=== PATIENT | female | born 1930 | race Caucasian/White ===

== ENCOUNTER 2016-04-25 17:33 | Inpatient (IN) | payer MEDICARE, OTHER ==
[~2016-04-25] VITALS: Ht 170.2 cm; Wt 76.7 kg
[~2016-04-25 17:33] MED LIST: ACET325T53 PO; AMLO10TA2 PO; CLON0.1T14 PO; CLOP75TA2 PO; DOCU250C75 PO; DONE5TAB3 PO; GABA-532 PO; HYDR-4077 PO; MAG30ORA PO; MAGN400O6 PO; MEMA10TA21 PO; METO25TA6 PO
[2016-04-25 18:22] LABS: BASOPHILS % (AUTO) 0.4 % (0.0-2.0); DIFF TOTAL % 100 %; EOSINOPHILS # (AUTO) 0.2 /CMM (0.0-0.7); HEMATOCRIT 43 % (33-45); HEMOGLOBIN 14.1 g/dL (11.5-14.8); LYMPHOCYTES # (AUTO) 2.3 /CMM (0.8-4.8); LYMPHOCYTES % (AUTO) 28.6 % (20.0-44.0); MEAN CORPUSCULAR HEMOGLOBIN 29 PG (26.0-33.0); MEAN CORPUSCULAR HGB CONC 33 g/dl (31.0-36.0); MEAN CORPUSCULAR VOLUME 87 fL (82-100); MONOCYTES # (AUTO) 0.5 /CMM (0.1-1.30); MONOCYTES % (AUTO) 5.9 % (2.0-12.0); NEUTROPHILS # (AUTO) 4.9 /CMM (1.8-8.9); NEUTROPHILS % (AUTO) 63.1 % (43.0-81.0); PLATELET COUNT (AUTO) 255 /CMM (150-450); RED BLOOD CELL COUNT(AUTO) 4.92 MIL/uL (4.0-5.2); WHITE BLOOD COUNT (AUTO) 7.9 K/uL (4.3-11.0)
[2016-04-25 18:29] LABS: ANION GAP 14 (5-14); CALCIUM, SERUM 8.8 mg/dL (8.5-10.1); CARBON DIOXIDE 26 mmol/L (21-32); CHLORIDE 106 mmol/L (98-107); CREATININE 2.5 mg/dL (0.6-1.3); GLUCOSE 180 mg/dL (74-106); POTASSIUM 4.6 mmol/L (3.5-5.1); SODIUM SERUM 141 mmol/L (136-145); UREA NITROGEN, BLOOD 40 mg/dL (7-18)
[2016-04-25 18:35] LABS: ALANINE AMINOTRANSFERASE 8 U/L (12-78); ALBUMIN 3.2 g/dL (3.4-5.0); ASPARTATE AMINOTRANSFERASE 11 U/L (15-37); BILIRUBIN,DIRECT 0.1 mg/dL (0.0-0.2); BILIRUBIN,TOTAL 0.4 mg/dL (0.2-1.0); INDIRECT BILIRUBIN 0.3 mg/dL (0.0-1.1); TOTAL PROTEIN, SERUM 7.4 g/dL (6.4-8.2)
[2016-04-25 18:37] LABS: SALICYLATE 0.7 mg/dL (2.8-20.0)
[2016-04-25] MEDS ORDERED: DIVA500T2 PO (18:37)
[2016-04-25] MEDS ORDERED: LEVO25TA9 PO (18:37)
[2016-04-25] MEDS ORDERED: QUET25TA PO (18:37)
[2016-04-25] MEDS ORDERED: DIPH1TAB70 PO (18:37)
[2016-04-25] MEDS ORDERED: MIRT15TA7 PO (18:37)
[2016-04-25] MEDS ORDERED: HYDR-4076 PO (18:37)
[2016-04-25] MEDS ORDERED: IBUP-1955 PO (18:37)
[2016-04-25] MEDS ORDERED: LORA1TAB PO (18:37)
[2016-04-25 18:38] LABS: ACETAMINOPHEN 0 ug/ml (10-30)
[2016-04-25 19:10] LABS: KETONES,URINE Trace (NEGATIVE); LEUKOCYTE ESTERASE ,URINE Small (NEGATIVE)
[2016-04-25 19:27] LABS: ADD UA MICROSCOPIC YES; CANNABINOID, URINE NEGATIVE (NEGATIVE); PHENCYCLIDINE SCREEN,URINE NEGATIVE (NEGATIVE)
[2016-04-25 19:34] LABS: ADD URINE CULTURE NO; RBC,URINE 0-2 /HPF (0-2)
[2016-04-25] MEDS ORDERED: LORAZEPAM 1 MG TABLET ONE (20:02)
[2016-04-25 20:15] VITALS: BP 162/77
[2016-04-25] MEDS ORDERED: ACETAMINOPHEN 325 MG TABLET PO PRN (20:30)
[2016-04-25] MEDS ORDERED: MAGNESIUM HYDROXIDE 30 ML UDC PO PRN (20:30)
[2016-04-25] MEDS ORDERED: MAG HYDROX/AL HYDROX/SIMETH 30 ML UDC PO PRN (20:30)
[2016-04-25] MEDS ORDERED: TEMAZEPAM 7.5 MG CAPSULE PO PRN (20:30)
[2016-04-25] MEDS ORDERED: LORAZEPAM 1 MG TABLET PO PRN (20:30)
[2016-04-25] MEDS ORDERED: LORAZEPAM 0.5 MG TABLET PO PRN (20:30)
[2016-04-25 21:55] LABS: CHOLESTEROL 210 mg/dL (<200); HDL CHOLESTEROL 37 mg/dL (40-60); LDL 155 mg/dL (0-99); TRIGLYCERIDES 94 mg/dL (30-150)
[2016-04-26] MEDS ORDERED: IBUPROFEN 600 MG TABLET PO PRN (01:30)
[2016-04-26] MEDS ORDERED: DIPHENOXYLATE HCL/ATROP SULF 1 UDTAB TABLET PO PRN (01:30)
[2016-04-26 03:03] VITALS: BP 152/77
[2016-04-26 08:00] VITALS: BP 150/79
[2016-04-26] MEDS: DOCUSATE SODIUM 250 MG CAPSULE PO SCH ×2 (08:49→17:12)
[2016-04-26] MEDS: AMLODIPINE BESYLATE 10 MG TABLET PO SCH (08:49)
[2016-04-26] MEDS: METOPROLOL TARTRATE 50 MG TABLET PO SCH ×3 (08:50→21:54)
[2016-04-26] MEDS: CLOPIDOGREL BISULFATE 75 MG TABLET PO SCH (08:50)
[2016-04-26] MEDS: LEVOTHYROXINE SODIUM 25 MCG TABLET PO SCH (08:50)
[2016-04-26] MEDS: hydrALAZINE HCL 50 MG TABLET PO SCH ×3 (08:56→17:12)
[2016-04-26] MEDS: GABAPENTIN 100 MG CAPSULE PO SCH ×2 (08:56→17:12)
[2016-04-26] MEDS: Z GUARD REMEDY 2 OZ OINT TP SCH ×2 (11:30→17:30)
[2016-04-26] MEDS ORDERED: Z GUARD REMEDY 2 OZ OINT TP PRN (11:30)
[2016-04-26 16:07] VITALS: BP 158/88
[2016-04-26 20:00] VITALS: BP 140/73
[2016-04-26] MEDS: DIVALPROEX SODIUM 500 MG TABLET.DR PO SCH ×2 (21:00→21:55)
[2016-04-26] MEDS: QUETIAPINE FUMARATE 25 MG TABLET PO SCH ×2 (21:00→21:55)
[2016-04-26 21:01] LABS: BASOPHILS # (AUTO) 0.1 /CMM (0.0-0.2); BASOPHILS % (AUTO) 0.6 % (0.0-2.0); DIFF TOTAL % 100 %; EOSINOPHILS % (AUTO) 0.2 % (0.0-6.0); HEMATOCRIT 46 % (33-45); HEMOGLOBIN 14.4 g/dL (11.5-14.8); LYMPHOCYTES # (AUTO) 3.1 /CMM (0.8-4.8); MEAN CORPUSCULAR HEMOGLOBIN 28 PG (26.0-33.0); MEAN CORPUSCULAR HGB CONC 32 g/dl (31.0-36.0); MEAN CORPUSCULAR VOLUME 87 fL (82-100); MONOCYTES # (AUTO) 0.7 /CMM (0.1-1.30); MONOCYTES % (AUTO) 6.3 % (2.0-12.0); NEUTROPHILS # (AUTO) 7.9 /CMM (1.8-8.9); NEUTROPHILS % (AUTO) 66.9 % (43.0-81.0); RED BLOOD CELL COUNT(AUTO) 5.21 MIL/uL (4.0-5.2); WHITE BLOOD COUNT (AUTO) 11.8 K/uL (4.3-11.0)
[2016-04-26 21:49] LABS: PLATELET COUNT (AUTO) 236 /CMM (150-450)
[2016-04-26] MEDS: MIRTAZAPINE 15 MG TABLET PO SCH ×2 (21:55→22:00)
[2016-04-26] MEDS: DONEPEZIL 5 MG TABLET PO SCH ×2 (21:55→22:00)
[2016-04-27] MEDS: Z GUARD REMEDY 2 OZ OINT TP SCH ×2 (05:36→17:09)
[2016-04-27] MEDS: LEVOTHYROXINE SODIUM 25 MCG TABLET PO SCH (08:17)
[2016-04-27] MEDS: AMLODIPINE BESYLATE 10 MG TABLET PO SCH (08:17)
[2016-04-27] MEDS: METOPROLOL TARTRATE 50 MG TABLET PO SCH ×2 (08:17→23:30)
[2016-04-27] MEDS: DOCUSATE SODIUM 250 MG CAPSULE PO SCH ×2 (08:17→17:07)
[2016-04-27] MEDS: CLOPIDOGREL BISULFATE 75 MG TABLET PO SCH (08:17)
[2016-04-27] MEDS: QUETIAPINE FUMARATE 25 MG TABLET PO SCH ×2 (08:17→23:29)
[2016-04-27] MEDS: hydrALAZINE HCL 50 MG TABLET PO SCH ×3 (08:18→17:00)
[2016-04-27 08:21] VITALS: BP 161/105
[2016-04-27] MEDS: DIVALPROEX SODIUM 500 MG TABLET.DR PO SCH ×2 (08:24→23:30)
[2016-04-27] MEDS: GABAPENTIN 100 MG CAPSULE PO SCH ×2 (08:24→17:07)
[2016-04-27 16:03] VITALS: BP 120/52
[2016-04-27 20:00] VITALS: BP 119/54
[2016-04-27] MEDS: DONEPEZIL 5 MG TABLET PO SCH (23:29)
[2016-04-27] MEDS: MIRTAZAPINE 15 MG TABLET PO SCH (23:30)
[2016-04-28] MEDS: Z GUARD REMEDY 2 OZ OINT TP SCH ×2 (06:06→17:46)
[2016-04-28] MEDS: DIVALPROEX SODIUM 500 MG TABLET.DR PO SCH ×2 (09:00→10:37)
[2016-04-28 09:36] VITALS: BP 150/86
[2016-04-28 09:39] VITALS: BP 142/91
[2016-04-28] MEDS: AMLODIPINE BESYLATE 10 MG TABLET PO SCH (10:36)
[2016-04-28] MEDS: QUETIAPINE FUMARATE 25 MG TABLET PO SCH ×2 (10:37→21:47)
[2016-04-28] MEDS: METOPROLOL TARTRATE 50 MG TABLET PO SCH ×2 (10:37→21:47)
[2016-04-28] MEDS: CLOPIDOGREL BISULFATE 75 MG TABLET PO SCH (10:37)
[2016-04-28] MEDS: hydrALAZINE HCL 50 MG TABLET PO SCH ×3 (10:37→17:45)
[2016-04-28] MEDS: DOCUSATE SODIUM 250 MG CAPSULE PO SCH ×2 (10:38→17:44)
[2016-04-28] MEDS: GABAPENTIN 100 MG CAPSULE PO SCH ×2 (10:38→17:44)
[2016-04-28] MEDS: LEVOTHYROXINE SODIUM 25 MCG TABLET PO SCH (10:38)
[2016-04-28 16:39] VITALS: BP 131/66
[2016-04-28 20:18] VITALS: BP 121/74
[2016-04-28] MEDS: DIVALPROEX SODIUM 125 MG CAP.SPRINK PO SCH (21:47)
[2016-04-28] MEDS: MIRTAZAPINE 15 MG TABLET PO SCH (21:48)
[2016-04-28] MEDS: DONEPEZIL 5 MG TABLET PO SCH (21:48)
[2016-04-29] MEDS: Z GUARD REMEDY 2 OZ OINT TP SCH ×2 (05:13→17:50)
[2016-04-29] MEDS: LEVOTHYROXINE SODIUM 25 MCG TABLET PO SCH (07:30)
[2016-04-29 08:00] VITALS: BP 166/75
[2016-04-29] MEDS: QUETIAPINE FUMARATE 25 MG TABLET PO SCH ×2 (09:00→21:45)
[2016-04-29] MEDS: hydrALAZINE HCL 50 MG TABLET PO SCH ×3 (09:00→16:44)
[2016-04-29] MEDS: METOPROLOL TARTRATE 50 MG TABLET PO SCH ×2 (09:00→21:46)
[2016-04-29] MEDS: AMLODIPINE BESYLATE 10 MG TABLET PO SCH (09:00)
[2016-04-29] MEDS: DIVALPROEX SODIUM 125 MG CAP.SPRINK PO SCH ×2 (09:00→21:46)
[2016-04-29] MEDS: CLOPIDOGREL BISULFATE 75 MG TABLET PO SCH (09:00)
[2016-04-29] MEDS: GABAPENTIN 100 MG CAPSULE PO SCH ×2 (09:00→16:45)
[2016-04-29] MEDS: DOCUSATE SODIUM 250 MG CAPSULE PO SCH ×2 (09:00→16:43)
[2016-04-29 14:53] LABS: CALCIUM, SERUM 8.4 mg/dL (8.5-10.1); CREATININE 2.5 mg/dL (0.6-1.3); PHOSPHORUS 3.5 mg/dL (2.5-4.9); POTASSIUM 4.9 mmol/L (3.5-5.1)
[2016-04-29 16:00] VITALS: BP 154/97
[2016-04-29 20:02] VITALS: BP 124/64
[2016-04-29] MEDS: MIRTAZAPINE 15 MG TABLET PO SCH (21:45)
[2016-04-29] MEDS: DONEPEZIL 5 MG TABLET PO SCH (21:46)
[2016-04-30] MEDS: Z GUARD REMEDY 2 OZ OINT TP SCH ×2 (05:54→17:38)
[2016-04-30 08:00] VITALS: BP 128/76
[2016-04-30] MEDS: hydrALAZINE HCL 50 MG TABLET PO SCH ×3 (13:00→16:40)
[2016-04-30] MEDS: DIVALPROEX SODIUM 125 MG CAP.SPRINK PO SCH ×2 (13:55→21:28)
[2016-04-30] MEDS: LEVOTHYROXINE SODIUM 25 MCG TABLET PO SCH (13:56)
[2016-04-30] MEDS: CLOPIDOGREL BISULFATE 75 MG TABLET PO SCH (13:57)
[2016-04-30] MEDS: GABAPENTIN 100 MG CAPSULE PO SCH ×2 (13:57→16:40)
[2016-04-30] MEDS: QUETIAPINE FUMARATE 25 MG TABLET PO SCH ×2 (13:57→21:28)
[2016-04-30] MEDS: DOCUSATE SODIUM 250 MG CAPSULE PO SCH ×2 (13:58→16:40)
[2016-04-30] MEDS: METOPROLOL TARTRATE 50 MG TABLET PO SCH ×2 (13:58→21:29)
[2016-04-30] MEDS: AMLODIPINE BESYLATE 10 MG TABLET PO SCH (13:59)
[2016-04-30 16:00] VITALS: BP 143/86
[2016-04-30 19:21] LABS: BASOPHILS % (AUTO) 0.2 % (0.0-2.0); DIFF TOTAL % 100 %; EOSINOPHILS # (AUTO) 0.2 /CMM (0.0-0.7); EOSINOPHILS % (AUTO) 1.2 % (0.0-6.0); HEMATOCRIT 43 % (33-45); HEMOGLOBIN 13.8 g/dL (11.5-14.8); LYMPHOCYTES # (AUTO) 2.2 /CMM (0.8-4.8); LYMPHOCYTES % (AUTO) 17.3 % (20.0-44.0); MEAN CORPUSCULAR HEMOGLOBIN 29 PG (26.0-33.0); MEAN CORPUSCULAR HGB CONC 33 g/dl (31.0-36.0); MEAN CORPUSCULAR VOLUME 88 fL (82-100); MONOCYTES # (AUTO) 0.8 /CMM (0.1-1.30); MONOCYTES % (AUTO) 5.9 % (2.0-12.0); NEUTROPHILS # (AUTO) 9.7 /CMM (1.8-8.9); NEUTROPHILS % (AUTO) 75.4 % (43.0-81.0); PLATELET COUNT (AUTO) 273 /CMM (150-450); RED BLOOD CELL COUNT(AUTO) 4.84 MIL/uL (4.0-5.2); WHITE BLOOD COUNT (AUTO) 12.9 K/uL (4.3-11.0)
[2016-04-30 19:30] LABS: CALCIUM, SERUM 8.3 mg/dL (8.5-10.1); CREATININE 2.9 mg/dL (0.6-1.3); PHOSPHORUS 3.6 mg/dL (2.5-4.9); POTASSIUM 4.3 mmol/L (3.5-5.1)
[2016-04-30 21:20] VITALS: BP 124/58
[2016-04-30] MEDS: MIRTAZAPINE 15 MG TABLET PO SCH (21:28)
[2016-04-30] MEDS: DONEPEZIL 5 MG TABLET PO SCH (21:28)
[2016-05-01] MEDS: Z GUARD REMEDY 2 OZ OINT TP SCH ×2 (06:23→17:10)
[2016-05-01] MEDS: LEVOTHYROXINE SODIUM 25 MCG TABLET PO SCH (08:03)
[2016-05-01 08:20] LABS: BASOPHILS % (AUTO) 0.3 % (0.0-2.0); DIFF TOTAL % 100 %; EOSINOPHILS # (AUTO) 0.2 /CMM (0.0-0.7); EOSINOPHILS % (AUTO) 1.6 % (0.0-6.0); HEMATOCRIT 43 % (33-45); HEMOGLOBIN 14.2 g/dL (11.5-14.8); LYMPHOCYTES % (AUTO) 19.3 % (20.0-44.0); MEAN CORPUSCULAR HEMOGLOBIN 29 PG (26.0-33.0); MEAN CORPUSCULAR HGB CONC 33 g/dl (31.0-36.0); MEAN CORPUSCULAR VOLUME 88 fL (82-100); MONOCYTES # (AUTO) 0.9 /CMM (0.1-1.30); MONOCYTES % (AUTO) 8.7 % (2.0-12.0); NEUTROPHILS # (AUTO) 7.4 /CMM (1.8-8.9); NEUTROPHILS % (AUTO) 70.1 % (43.0-81.0); PLATELET COUNT (AUTO) 265 /CMM (150-450); RED BLOOD CELL COUNT(AUTO) 4.87 MIL/uL (4.0-5.2); WHITE BLOOD COUNT (AUTO) 10.5 K/uL (4.3-11.0)
[2016-05-01 08:43] VITALS: BP 159/77
[2016-05-01 08:44] LABS: CALCIUM, SERUM 8.6 mg/dL (8.5-10.1); CREATININE 2.5 mg/dL (0.6-1.3); PHOSPHORUS 3.8 mg/dL (2.5-4.9); POTASSIUM 4.3 mmol/L (3.5-5.1)
[2016-05-01] MEDS: DIVALPROEX SODIUM 125 MG CAP.SPRINK PO SCH ×2 (09:20→22:17)
[2016-05-01] MEDS: AMLODIPINE BESYLATE 10 MG TABLET PO SCH (09:21)
[2016-05-01] MEDS: hydrALAZINE HCL 50 MG TABLET PO SCH ×3 (09:22→17:09)
[2016-05-01] MEDS: DOCUSATE SODIUM 250 MG CAPSULE PO SCH ×2 (09:22→17:09)
[2016-05-01] MEDS: GABAPENTIN 100 MG CAPSULE PO SCH ×2 (09:22→17:09)
[2016-05-01] MEDS: QUETIAPINE FUMARATE 25 MG TABLET PO SCH ×2 (09:22→22:17)
[2016-05-01] MEDS: CLOPIDOGREL BISULFATE 75 MG TABLET PO SCH (09:23)
[2016-05-01] MEDS: METOPROLOL TARTRATE 50 MG TABLET PO SCH ×2 (09:23→22:20)
[2016-05-01 16:31] VITALS: BP 151/61
[2016-05-01 20:02] VITALS: BP 135/66
[2016-05-01] MEDS: MIRTAZAPINE 15 MG TABLET PO SCH (22:17)
[2016-05-01] MEDS: DONEPEZIL 5 MG TABLET PO SCH (22:20)
[2016-05-02] MEDS: Z GUARD REMEDY 2 OZ OINT TP SCH ×2 (06:26→18:45)
[2016-05-02] MEDS: LEVOTHYROXINE SODIUM 25 MCG TABLET PO SCH (07:30)
[2016-05-02 08:39] VITALS: BP 184/74
[2016-05-02] MEDS: hydrALAZINE HCL 50 MG TABLET PO SCH ×3 (09:00→17:00)
[2016-05-02] MEDS: DOCUSATE SODIUM 250 MG CAPSULE PO SCH ×2 (09:00→17:00)
[2016-05-02] MEDS: CLOPIDOGREL BISULFATE 75 MG TABLET PO SCH (09:00)
[2016-05-02] MEDS: DIVALPROEX SODIUM 125 MG CAP.SPRINK PO SCH ×2 (09:00→21:31)
[2016-05-02] MEDS: AMLODIPINE BESYLATE 10 MG TABLET PO SCH (09:00)
[2016-05-02] MEDS: GABAPENTIN 100 MG CAPSULE PO SCH ×2 (09:00→17:00)
[2016-05-02] MEDS: QUETIAPINE FUMARATE 25 MG TABLET PO SCH ×2 (09:00→21:32)
[2016-05-02] MEDS: METOPROLOL TARTRATE 50 MG TABLET PO SCH ×2 (09:00→21:32)
[2016-05-02 16:00] VITALS: BP 170/67
[2016-05-02 20:00] VITALS: BP 139/58
[2016-05-02] MEDS: DONEPEZIL 5 MG TABLET PO SCH (21:32)
[2016-05-02] MEDS: MIRTAZAPINE 15 MG TABLET PO SCH (21:32)
[2016-05-03] MEDS: Z GUARD REMEDY 2 OZ OINT TP SCH ×2 (06:21→17:19)
[2016-05-03 08:00] VITALS: BP 186/78
[2016-05-03] MEDS: METOPROLOL TARTRATE 50 MG TABLET PO SCH ×2 (09:00→21:00)
[2016-05-03] MEDS: LEVOTHYROXINE SODIUM 25 MCG TABLET PO SCH (09:06)
[2016-05-03] MEDS: DIVALPROEX SODIUM 125 MG CAP.SPRINK PO SCH ×2 (09:06→21:00)
[2016-05-03] MEDS: GABAPENTIN 100 MG CAPSULE PO SCH ×2 (09:06→17:17)
[2016-05-03] MEDS: CLOPIDOGREL BISULFATE 75 MG TABLET PO SCH (09:06)
[2016-05-03] MEDS: DOCUSATE SODIUM 250 MG CAPSULE PO SCH ×2 (09:06→17:17)
[2016-05-03] MEDS: QUETIAPINE FUMARATE 25 MG TABLET PO SCH ×2 (09:06→22:00)
[2016-05-03] MEDS: AMLODIPINE BESYLATE 10 MG TABLET PO SCH (09:08)
[2016-05-03] MEDS: hydrALAZINE HCL 50 MG TABLET PO SCH ×3 (09:09→17:18)
[2016-05-03] MEDS ORDERED: ERGOCALCIFEROL (VITAMIN D 2) 50,000 UNIT CAPSULE PO SCH (12:00)
[2016-05-03 16:17] VITALS: BP 127/64
[2016-05-03 20:00] VITALS: BP 131/59
[2016-05-03] MEDS: MIRTAZAPINE 15 MG TABLET PO SCH (22:00)
[2016-05-03] MEDS: DONEPEZIL 5 MG TABLET PO SCH (22:00)
[2016-05-04] MEDS: Z GUARD REMEDY 2 OZ OINT TP SCH ×2 (06:25→18:40)
[2016-05-04 08:00] VITALS: BP 163/90
[2016-05-04] MEDS: CLOPIDOGREL BISULFATE 75 MG TABLET PO SCH (08:52)
[2016-05-04] MEDS: AMLODIPINE BESYLATE 10 MG TABLET PO SCH (08:52)
[2016-05-04] MEDS: GABAPENTIN 100 MG CAPSULE PO SCH ×2 (08:53→18:37)
[2016-05-04] MEDS: DIVALPROEX SODIUM 125 MG CAP.SPRINK PO SCH ×2 (08:53→21:43)
[2016-05-04] MEDS: METOPROLOL TARTRATE 50 MG TABLET PO SCH ×2 (08:53→21:43)
[2016-05-04] MEDS: DOCUSATE SODIUM 250 MG CAPSULE PO SCH ×2 (08:53→18:37)
[2016-05-04] MEDS: LEVOTHYROXINE SODIUM 25 MCG TABLET PO SCH (08:54)
[2016-05-04] MEDS: hydrALAZINE HCL 50 MG TABLET PO SCH ×3 (08:54→18:37)
[2016-05-04 16:18] VITALS: BP 143/50
[2016-05-04 20:00] VITALS: BP 142/67
[2016-05-04] MEDS: QUETIAPINE FUMARATE 25 MG TABLET PO SCH (21:43)
[2016-05-04] MEDS: DONEPEZIL 5 MG TABLET PO SCH (21:43)
[2016-05-04] MEDS: MIRTAZAPINE 15 MG TABLET PO SCH (21:43)
[2016-05-05] MEDS: Z GUARD REMEDY 2 OZ OINT TP SCH ×2 (06:10→17:09)
[2016-05-05 08:16] VITALS: BP 131/72
[2016-05-05] MEDS: GABAPENTIN 100 MG CAPSULE PO SCH ×2 (09:06→16:37)
[2016-05-05] MEDS: DIVALPROEX SODIUM 125 MG CAP.SPRINK PO SCH ×2 (09:06→21:07)
[2016-05-05] MEDS: hydrALAZINE HCL 50 MG TABLET PO SCH ×3 (09:08→16:37)
[2016-05-05] MEDS: DOCUSATE SODIUM 250 MG CAPSULE PO SCH ×2 (09:08→16:37)
[2016-05-05] MEDS: METOPROLOL TARTRATE 50 MG TABLET PO SCH ×2 (09:09→21:06)
[2016-05-05] MEDS: AMLODIPINE BESYLATE 10 MG TABLET PO SCH (09:10)
[2016-05-05] MEDS: LEVOTHYROXINE SODIUM 25 MCG TABLET PO SCH (09:11)
[2016-05-05] MEDS: CLOPIDOGREL BISULFATE 75 MG TABLET PO SCH (09:11)
[2016-05-05 16:01] VITALS: BP 140/65
[2016-05-05 20:08] VITALS: BP 161/80
[2016-05-05] MEDS: DONEPEZIL 5 MG TABLET PO SCH (21:07)
[2016-05-05] MEDS: QUETIAPINE FUMARATE 25 MG TABLET PO SCH (21:07)
[2016-05-05] MEDS: MIRTAZAPINE 15 MG TABLET PO SCH (21:07)
[2016-05-06] MEDS: Z GUARD REMEDY 2 OZ OINT TP SCH (05:34)
[2016-05-06] MEDS: LEVOTHYROXINE SODIUM 25 MCG TABLET PO SCH (07:30)
[2016-05-06 08:00] VITALS: BP 150/82
[2016-05-06] MEDS: GABAPENTIN 100 MG CAPSULE PO SCH (09:00)
[2016-05-06] MEDS: hydrALAZINE HCL 50 MG TABLET PO SCH ×3 (09:00→14:05)
[2016-05-06] MEDS: AMLODIPINE BESYLATE 10 MG TABLET PO SCH ×2 (09:00→14:05)
[2016-05-06] MEDS: DOCUSATE SODIUM 250 MG CAPSULE PO SCH (09:00)
[2016-05-06] MEDS: METOPROLOL TARTRATE 50 MG TABLET PO SCH (09:00)
[2016-05-06] MEDS: CLOPIDOGREL BISULFATE 75 MG TABLET PO SCH (09:00)
[2016-05-06] MEDS: DIVALPROEX SODIUM 125 MG CAP.SPRINK PO SCH (09:00)
[2016-05-06 14:05] VITALS: BP 187/100
== END 2016-05-06 13:30 | DRG 885 ==
LOC: ER 17:39 → GPS 19:58
PROVIDERS: ADMIT Psychiatry & Neurology Psychiatry; ATTEND Internal Medicine
DX: F31.9 Bipolar disorder, unspecified (principal); N18.4 Chronic kidney disease, stage 4 (severe); F03.91 Unspecified dementia, unspecified severity, with behavioral disturbance; N39.0 Urinary tract infection, site not specified; F39 Unspecified mood [affective] disorder; I12.9 Hypertensive chronic kidney disease with stage 1 through stage 4 chronic kidney disease, or unspecified chronic kidney disease; I25.10 Atherosclerotic heart disease of native coronary artery without angina pectoris; E03.9 Hypothyroidism, unspecified; E78.5 Hyperlipidemia, unspecified; F29 Unspecified psychosis not due to a substance or known physiological condition; G62.9 Polyneuropathy, unspecified; K59.00 Constipation, unspecified
CPT/HCPCS: 36415; 80048-TC; 80061-TC; 80076-TC; 80164-TC; 80305; 81000-TC; 82306; 82652; 83735-TC; 83970; 84100-TC; 85025-TC; 87081-TC; 87086-TC; A4606; G0480; G6039-TC; Z7610